=== PATIENT | female | born 1985 | race American Indian/Alaskan Native ===

== ENCOUNTER 2021-04-18 08:38 | Inpatient (IN) | payer MEDICAID ==
--- NOTE | 2021-04-18 08:46 | History and Physical Report ---
History of Present Illness Date of examination: 04/18/21 Date of admission: 04/18/21 08:38 Chief complaint: I'm here for an induction. History of present illness: Pt is a 36 y.o. who presents for IOL @ 37.5 wks per [facility] recommendation d/t IUGR. Last EFW @ [facility] on 03/30 was 4-6, 4%. She was also being followed d/t a low lying placenta (no evidence of vasa previa or placenta previa noted, anterior placenta on 03/30 scan) that has since resolved. EDC Confirmation: 05/04/2021 Gestational Age: 37.5 weeks on admission Past History : 4 Term Births: 1 Premature Births: 0 Living Children: 1 Para: 1 Mult. Births: 0 Prev : 0 Prev. attempt? 0 Aborta: 2 Elect. Ab: 1 Spont. Ab: 1 Ectopics: 0 # 1 Delivery date: 2009 Weeks Gestation: 37 labor: no Delivery type: Hours of labor: 6 Anesthesia type: epidural Delivery location: [place] Sex: Male weight: 5lbs 5oz Comments: no complications # 2 Delivery date: 2010 Weeks Gestation: pt unsure Delivery type: EAB Comments: D&C, no complications # 3 Delivery date: 05/30/2020 Weeks Gestation: 7 Delivery type: SAB Comments: No D&C; Methotrexate; denies complications Past Medical History: Negative Past Medical History Past Surgical History: Reviewed history from 05/30/2020 and no changes required: negative Family History Summary: Reviewed history and no changes required: 09/24/2020 Social History: Reviewed history and no changes required: Smoking History: Patient is a former smoker. Risk Factors: Smoked Tobacco Use: Former smoker Cigars: Yes Cigars/Pipes Year Quit: 2019 Cigars/Pipes Years Since Last Quit: 2 Smokeless Tobacco Use: Never Counseled to Quit/Cut Down: yes Passive Smoke Exposure: no HIV High Risk Behavior: no Exercise: no Exercise Counseling: yes Seatbelt Use: preg-group home counselor % No Dietary Counseling Reason: pn yes Past Medical History Anesthesia Complications: negative Anemia: negative Autoimmune Disorder: negative Bleeding Disorder: negative Blood Transfusions: negative Breast Disease: negative Diabetes: negative Heart Disease: negative Hypertension: negative Hepatitis/Liver Disease: negative Kidney Disease/UTI: negative Neurologic/Epilepsy/Migraines: negative Phlebitis/Varicosities: negative Psychiatric: negative Pulmonary Disease/Asthma: negative Thyroid Disease: negative Hospitalizations: negative 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 Infection History Hx of STD: none HIV Risk Eval: no Hepatitis B Risk Eval: low risk Personal hx. of genital herpes: no Partner hx. of genital herpes: no Rash, Viral, or Febrile illness since last LMP? no Varicella/Chicken Pox Status: Previous Disease TB Risk: no Genetic History Congenital Heart Defect: Mom: no Dad: no Samantha Disease: Mom: no Dad: no Thalassemia Mom: no Dad: no Neural Tube Defect Mom: no Dad: no Down's Syndrome Mom: no Dad: no Jonathan-Sachs Mom: no Dad: no Sickle Cell Disease/Trait Mom: no Dad: no Hemophilia Mom: no Dad: no Muscular Dystrophy Mom: no Dad: no Cystic Fibrosis Mom: no Dad: no Tarrant Chorea Mom: no Dad: no Mental Retardation Mom: no Dad: no Fragile X Mom: no Dad: no Other Genetic/Chromosomal Disorder Mom: no Dad: no Child w/other defect Mom: no Dad: no Enviromental Exposures Enviromental Exposures Reviewed Xray Exposure: no Medication, drug, or alcohol use since LMP: no Chemical/Other Exposure: no Exposure to Cat Liter: no Hx of Parvovirus (Fifth Disease): no Occupational Exposure to Children: none Active Medications (reviewed today): ONDANSETRON 8 MG ORAL TABLET DISINTEGRATING (ONDANSETRON) 1 po q12hrs prn ONDANSETRON HCL TABLET (ONDANSETRON HCL TABS) Current Allergies (reviewed today): No known allergies Past History Past Medical History: no pertinent history Past Surgical History: no surgical history Family/Genetic History: none Social history: no significant social history - Obstetrical History Expected Date of Delivery: 05/04/21 Actual Gestation: 37 Week(s) 5 Day(s) : 4 Para: 1 Hx # Term Pregnancies: 1 Number of Pregnancies: 0 Spontaneous Abortions: 1 Induced : 1 Number of Living Children: 1 Medications and Allergies Allergies Allergy/AdvReac Type Severity Reaction Status Date / Time No Known Allergies Allergy Verified 04/18/21 10:23 Home Medications Medication Instructions Recorded Confirmed Last Taken Type Vitamin 1 tab PO DAILY 04/18/21 04/18/21 04/18/21 08:00 History Review of Systems All systems: negative - Physical Exam Breasts: Positive: deferred Cardiovascular: Regular rate Lungs: Positive: Normal air movement Abdomen: Positive: normal appearance, soft Genitourinary (Female): Positive: normal external genitalia, normal perenium Vulva: both: normal Uterus: Positive: normal size Extremities: Positive: normal - Obstetrical Uterine Contraction Monitor Mode: External Cervical Dilatation: 1.5 Cervical Effacement Percentage: 60 station: -3 Results Result Diagrams: 04/18/21 08:52 All other labs normal. GBS NEGATIVE HBsAg Screen Negative Negative *1 RPR Non Reactive Non Reactive *2 Rubella Antibodies, IgG [L] <0.90 index Immune >0.99 *3 Non-immune <0.90 Equivocal 0.90 - 0.99 Immune >0.99 ABO Grouping O *4 Rh Factor Positive *5 Please note: Prior records for this patient's ABO / Rh type are not available for additional verification. Antibody Screen Negative Negative *6 Tests: (2) HB Solu + Rflx Frac (140309) Hemoglobin (Hgb) Solubility Negative Negative *31 Tests: (3) HIV Ag/Ab with Reflex (148913) HIV Screen 4th Generation wRfx Non Reactive Non Reactive *32 Tests: (4) HCV Antibody reflex to IRENE (022100) ! HCV Ab <0.1 s/co ratio 0.0-0.9 *33 Tests: (5) Interpretation: (873740) ! Interpretation: SPRCS *34 Negative Not infected with HCV, unless recent infection is suspected or other evidence exists to indicate HCV infection. Assessment and Plan A: 36 y.o. @ 37.5 wks, IOL d/t IUGR. - Patient Problems (1) 37 or more weeks gestation of Current Visit: Yes Status: Acute Plan to address problem: Monitor status through EFM. (2) IUGR (intrauterine growth restriction) affecting care of mother Current Visit: Yes Status: Acute Qualifiers: Fetus number: single or unspecified fetus Trimester: third trimester Qualified Code(s): O36.5930 - Maternal care for other known or suspected poor growth, third trimester, not applicable or unspecified Plan to address problem: Admit to labor and delivery for IOL. Initiate IV. Draw admission labs. Pain management: IV medication and epidural. Initiate IOL with Pitocin per protocol. (3) Rubella non-immune status, antepartum Current Visit: Yes Status: Acute Plan to address problem: Vaccine .
[2021-04-18] MEDS ORDERED: OXYTOCIN 10 UNIT/1 ML INJ IM PRN (08:52)
[2021-04-18] MEDS ORDERED: LIDOCAINE (2%) 20 MG/1 ML VIAL 20 ML MDV INFILTRATI NR (08:52)
[2021-04-18] MEDS ORDERED: OXYTOCIN DRIP 30 UNITS/500 ML BAG IV SCH (09:00)
[2021-04-18 09:49] LABS: Hematocrit 34.2 % (30.3-42.9); Hemoglobin 11.2 gm/dl (10.1-14.3); Mean Corpuscular HGB Conc 33 % (30-34); Mean Corpuscular Volume 91 fl (79-97); Platelet Count 205 K/mm3 (140-440); Red Blood Count 3.78 M/mm3 (3.65-5.03)
--- NOTE | 2021-04-18 10:27 | Anesthesia Consultation ---
Anesthesia Consult and Med Hx Date of service: 04/18/21 - Airway Anesthetic Teeth Evaluation: Good ROM Head & Neck: Adequate Mental/Hyoid Distance: Adequate Mallampati Class: Class III Intubation Access Assessment: Possibly Difficult - Pulmonary Exam CTA: Yes - Cardiac Exam Cardiac Exam: RRR - Pre-Operative Health Status ASA Pre-Surgery Classification: ASA2 Proposed Anesthetic Plan: Epidural - Pulmonary Hx Smoking: No Hx Asthma: No Hx Sleep Apnea: No - Cardiovascular System Hx Hypertension: No Hx Heart Attack/AMI: No Hx Angina: No - Central Nervous System Hx Seizures: No Hx Psychiatric Problems: No - Gastrointestinal Hx Gastroesophageal Reflux Disease: No - Endocrine Hx Renal Disease: No Hx Liver Disease: No Hx Insulin Dependent Diabetes: No Hx Non-Insulin Dependent Diabetes: No Hx Hypothyroidism: No Hx Hyperthyroidism: No - Hematic Hx Anemia: No Hx Sickle Cell Disease: No - Other Systems Hx Alcohol Use: No (social when not )
[2021-04-18] MEDS ORDERED: ACETAMINOPHEN 325 MG TAB PO PRN (11:00)
[2021-04-18] MEDS ORDERED: fentaNYL 100 MCG/2 ML INJ IV PRN (11:00)
[2021-04-18] MEDS ORDERED: ePHEDrine SULFATE 50 MG/1 ML INJ IV PRN (11:00)
[2021-04-18] MEDS ORDERED: miSOPROStol 200 MCG TAB PR PRN (11:00)
[2021-04-18] MEDS ORDERED: CARBOPROST TROMETHAMINE 250 MCG/1 ML INJ IM PRN (11:00)
[2021-04-18] MEDS ORDERED: NALOXONE 0.4 MG/1 ML INJ IV PRN (11:00)
[2021-04-18] MEDS ORDERED: TERBUTALINE 1 MG/1 ML INJ SUB-Q PRN (11:00)
[2021-04-18] MEDS ORDERED: METHYLERGONOVINE MALEATE 0.2 MG/ML VIAL IM PRN (11:00)
[2021-04-18] MEDS ORDERED: PROMETHAZINE 25 MG TAB PO PRN (11:00)
[2021-04-18] MEDS ORDERED: LOPERAMIDE 2 MG CAP PO PRN (11:00)
[2021-04-18] MEDS: LACTATED RINGERS 1,000 ML IV SCH ×3 (12:13→21:20)
--- NOTE | 2021-04-18 13:18 | Ultrasound Report ---
US OB limited INDICATION / CLINICAL INFORMATION: presentation COMPARISON: None available. FINDINGS/IMPRESSION: Single live intrauterine in cephalic presentation with heart rate measuring 123 bpm. Signer Name: Jay Orellana MD Signed: 04/18/2021 1:14 PM Workstation Name: [id number]
[2021-04-18] MEDS: OXYTOCIN DRIP 30 UNITS/500 ML BAG IV SCH (13:55)
--- NOTE | 2021-04-18 17:43 | Progress Note ---
Assessment and Plan A: 36 y.o. @ 37.5 wks, IOL d/t IUGR. Unchanged cervical exam. - Patient Problems (1) 37 or more weeks gestation of Current Visit: Yes Status: Acute (2) IUGR (intrauterine growth restriction) affecting care of mother Current Visit: Yes Status: Acute Qualifiers: Fetus number: single or unspecified fetus Trimester: third trimester Qualified Code(s): O36.5930 - Maternal care for other known or suspected poor growth, third trimester, not applicable or unspecified Plan to address problem: Unchanged cervical exam. Will allow for dinner. Insert Cervidil after dinner. (3) Rubella non-immune status, antepartum Current Visit: Yes Status: Acute Subjective - Subjective Date of service: 04/18/21 Principal diagnosis: IUP @ 37.5 wks, IOL d/t IUGR Patient reports: movement normal, contractions, no new complaints, no loss of fluid, no vaginal bleeding Objective - Vital Signs Vital Signs: Vital Signs - 12hr 04/18/21 04/18/21 04/18/21 09:13 10:30 10:38 Temperature 98.5 F Pulse Rate 78 85 Respiratory 18 Rate Blood Pressure 114/76 140/83 O2 Sat by Pulse Oximetry O2 Sat by Pulse 98 Oximetry [ Bilateral] 04/18/21 04/18/21 04/18/21 11:18 11:37 12:11 Temperature Pulse Rate 59 L 81 67 Respiratory Rate Blood Pressure 129/80 125/86 O2 Sat by Pulse 98 Oximetry O2 Sat by Pulse Oximetry [ Bilateral] 04/18/21 04/18/21 04/18/21 13:51 14:07 14:37 Temperature Pulse Rate 73 63 55 L Respiratory Rate Blood Pressure 120/66 114/69 130/76 O2 Sat by Pulse Oximetry O2 Sat by Pulse Oximetry [ Bilateral] 04/18/21 04/18/21 04/18/21 15:07 15:39 16:09 Temperature Pulse Rate 57 L 55 L 61 Respiratory Rate Blood Pressure 130/69 144/84 127/80 O2 Sat by Pulse Oximetry O2 Sat by Pulse Oximetry [ Bilateral] 04/18/21 04/18/21 04/18/21 16:37 17:07 17:38 Temperature Pulse Rate 63 61 56 L Respiratory Rate Blood Pressure 146/89 136/84 126/81 O2 Sat by Pulse Oximetry O2 Sat by Pulse Oximetry [ Bilateral] - Exam Cardiovascular: Regular rate Lungs: Normal air movement Abdomen: Present: normal appearance, soft FHR: category 1 Uterine Contraction Monitor Mode: External Cervical Dilatation: 1.5 Cervical Effacement Percentage: 60 station: -3 Uterine Contraction Pattern: Regular Uterine Tone Measurement Phase: Resting Uterine Contraction Intensity: Mild Extremities: normal - Labs Labs: Laboratory Results - last 24 hr 04/18/21 04/18/21 04/18/21 08:52 09:35 09:35 WBC 9.0 RBC 3.78 Hgb 11.2 Hct 34.2 MCV 91 MCH 30 MCHC 33 RDW 15.0 Plt Count 205 SARS-CoV-2 (PCR) Negative Blood Type O POSITIVE Antibody Screen Negative
[2021-04-18] MEDS ORDERED: DINOPROSTONE 10 MG VAG SUPP VG SCH (18:00)
[2021-04-18] MEDS ORDERED: MINERAL OIL 30 ML ORAL LIQD PO PRN (22:00)
[2021-04-19] MEDS: ONDANSETRON 4 MG/2 ML INJ IV PRN (01:02)
--- NOTE | 2021-04-19 06:07 | Progress Note ---
Assessment and Plan Pt resting without complaints. Cervidil to be removed @0858, pt may have am care and breakfast; Pitocin to start per protocol. VSSAF, admission labs reviewed and WNL; Anticipate . - Patient Problems (1) Rubella non-immune status, antepartum Current Visit: Yes Status: Acute Plan to address problem: vaccination to be offered (2) IUGR (intrauterine growth restriction) affecting care of mother Current Visit: Yes Status: Acute Qualifiers: Fetus number: single or unspecified fetus Trimester: third trimester Qualified Code(s): O36.5930 - Maternal care for other known or suspected poor growth, third trimester, not applicable or unspecified (3) 37 or more weeks gestation of Current Visit: Yes Status: Acute Subjective - Subjective Date of service: 04/19/21 Principal diagnosis: IUP @ 37.6 wks, IOL d/t IUGR Patient reports: movement normal, contractions, no new complaints, no loss of fluid, no vaginal bleeding Objective - Vital Signs Vital Signs: Vital Signs - 12hr 04/18/21 04/18/21 04/18/21 18:08 18:58 19:07 Pulse Rate 60 58 L 57 L Blood Pressure 126/74 127/87 127/85 O2 Sat by Pulse Oximetry 04/18/21 04/18/21 04/18/21 19:38 20:09 21:11 Pulse Rate 86 71 77 Blood Pressure 139/95 122/84 109/75 O2 Sat by Pulse 99 Oximetry 04/18/21 04/18/21 04/18/21 21:16 21:21 21:26 Pulse Rate 91 H 87 81 Blood Pressure O2 Sat by Pulse 100 99 99 Oximetry 04/18/21 04/18/21 04/18/21 21:31 21:36 21:38 Pulse Rate 101 H 88 85 Blood Pressure 122/73 O2 Sat by Pulse 99 98 Oximetry 04/18/21 04/18/21 04/18/21 21:41 21:46 21:51 Pulse Rate 79 105 H 111 H Blood Pressure O2 Sat by Pulse 99 99 99 Oximetry 04/18/21 04/18/21 04/18/21 21:56 22:01 22:06 Pulse Rate 96 H 66 77 Blood Pressure O2 Sat by Pulse 99 99 99 Oximetry 04/18/21 04/18/21 04/18/21 22:07 22:11 22:16 Pulse Rate 76 73 70 Blood Pressure 109/69 O2 Sat by Pulse 99 99 Oximetry 04/18/21 04/18/21 04/18/21 22:21 22:26 22:31 Pulse Rate 87 87 68 Blood Pressure O2 Sat by Pulse 99 99 100 Oximetry 04/18/21 04/18/21 04/18/21 22:36 22:37 22:41 Pulse Rate 92 H 78 79 Blood Pressure 121/72 O2 Sat by Pulse 99 99 Oximetry 04/18/21 04/18/21 04/18/21 22:46 22:51 22:56 Pulse Rate 104 H 84 73 Blood Pressure O2 Sat by Pulse 99 99 100 Oximetry 04/18/21 04/18/21 04/18/21 23:01 23:06 23:07 Pulse Rate 93 H 100 H 84 Blood Pressure 112/76 O2 Sat by Pulse 99 100 Oximetry 04/18/21 04/18/21 04/18/21 23:11 23:16 23:21 Pulse Rate 82 75 66 Blood Pressure O2 Sat by Pulse 99 100 100 Oximetry 04/18/21 04/18/21 04/18/21 23:26 23:31 23:36 Pulse Rate 63 67 71 Blood Pressure O2 Sat by Pulse 100 100 100 Oximetry 04/18/21 04/18/21 04/18/21 23:37 23:41 23:46 Pulse Rate 63 66 65 Blood Pressure 120/66 O2 Sat by Pulse 100 100 Oximetry 04/18/21 04/18/21 04/19/21 23:51 23:56 00:01 Pulse Rate 72 74 71 Blood Pressure O2 Sat by Pulse 100 100 100 Oximetry 04/19/21 04/19/21 04/19/21 00:06 00:07 00:11 Pulse Rate 73 70 68 Blood Pressure 120/73 O2 Sat by Pulse 100 100 Oximetry 04/19/21 04/19/21 04/19/21 00:16 00:21 00:26 Pulse Rate 77 71 67 Blood Pressure O2 Sat by Pulse 100 100 100 Oximetry 04/19/21 04/19/21 04/19/21 00:31 00:36 00:37 Pulse Rate 69 75 70 Blood Pressure 125/72 O2 Sat by Pulse 100 100 Oximetry 04/19/21 04/19/21 04/19/21 00:41 00:45 00:54 Pulse Rate 66 93 H 75 Blood Pressure O2 Sat by Pulse 99 91 99 Oximetry 04/19/21 04/19/21 04/19/21 00:59 01:04 01:08 Pulse Rate 81 64 60 Blood Pressure 107/65 O2 Sat by Pulse 98 98 Oximetry 04/19/21 04/19/21 04/19/21 01:09 01:14 01:19 Pulse Rate 66 62 64 Blood Pressure O2 Sat by Pulse 98 98 99 Oximetry 04/19/21 04/19/21 04/19/21 01:24 01:29 01:34 Pulse Rate 75 66 74 Blood Pressure O2 Sat by Pulse 98 98 98 Oximetry 04/19/21 04/19/21 04/19/21 01:37 01:39 01:44 Pulse Rate 79 75 76 Blood Pressure 102/65 O2 Sat by Pulse 98 98 Oximetry 04/19/21 04/19/21 04/19/21 01:49 01:54 01:59 Pulse Rate 69 74 80 Blood Pressure O2 Sat by Pulse 98 98 98 Oximetry 04/19/21 04/19/21 04/19/21 02:04 02:08 02:09 Pulse Rate 63 59 L 60 Blood Pressure 128/78 O2 Sat by Pulse 98 96 Oximetry 04/19/21 04/19/21 04/19/21 02:12 02:14 02:19 Pulse Rate 62 62 71 Blood Pressure O2 Sat by Pulse 91 94 99 Oximetry 04/19/21 04/19/21 04/19/21 02:24 02:29 02:34 Pulse Rate 65 61 58 L Blood Pressure O2 Sat by Pulse 99 99 97 Oximetry 04/19/21 04/19/21 04/19/21 02:37 02:39 02:43 Pulse Rate 77 57 L 66 Blood Pressure 130/89 O2 Sat by Pulse 98 91 Oximetry 04/19/21 04/19/21 04/19/21 02:44 02:49 02:54 Pulse Rate 61 70 65 Blood Pressure O2 Sat by Pulse 98 97 99 Oximetry 04/19/21 04/19/21 04/19/21 02:59 03:04 03:07 Pulse Rate 64 56 L 55 L Blood Pressure 134/74 O2 Sat by Pulse 98 96 Oximetry 04/19/21 04/19/21 04/19/21 03:08 03:09 03:14 Pulse Rate 58 L 80 64 Blood Pressure O2 Sat by Pulse 90 99 98 Oximetry 04/19/21 04/19/21 04/19/21 03:17 03:23 03:24 Pulse Rate 42 L 95 H Blood Pressure O2 Sat by Pulse 84 85 84 Oximetry 04/19/21 04/19/21 04/19/21 03:40 03:42 03:44 Pulse Rate 66 62 Blood Pressure 139/85 O2 Sat by Pulse 89 100 Oximetry 04/19/21 04/19/21 04/19/21 03:47 03:52 03:57 Pulse Rate 75 58 L 59 L Blood Pressure O2 Sat by Pulse 99 99 100 Oximetry 04/19/21 04/19/21 04/19/21 04:02 04:07 04:12 Pulse Rate 74 68 66 Blood Pressure 121/73 O2 Sat by Pulse 100 100 98 Oximetry 04/19/21 04/19/21 04/19/21 04:17 04:22 04:27 Pulse Rate 63 55 L 66 Blood Pressure O2 Sat by Pulse 98 99 97 Oximetry 04/19/21 04/19/21 04/19/21 04:32 04:37 04:42 Pulse Rate 60 67 58 L Blood Pressure 137/86 O2 Sat by Pulse 98 100 99 Oximetry 04/19/21 04/19/21 04/19/21 04:47 04:52 04:57 Pulse Rate 62 64 57 L Blood Pressure O2 Sat by Pulse 100 99 98 Oximetry 04/19/21 04/19/21 04/19/21 05:02 05:07 05:12 Pulse Rate 68 63 63 Blood Pressure 115/76 O2 Sat by Pulse 98 99 100 Oximetry 04/19/21 04/19/21 04/19/21 05:15 05:37 05:42 Pulse Rate 78 58 L 63 Blood Pressure 123/79 135/84 O2 Sat by Pulse 77 L Oximetry - Exam Breasts: deferred Cardiovascular: Regular rate Lungs: Normal air movement Abdomen: Present: normal appearance, soft Uterus: Present: normal, other (gravid at term) FHR: auscultation normal, category 1 Uterine Contraction Monitor Mode: External Uterine Contraction Pattern: Irregular Uterine Tone Measurement Phase: Resting Extremities: normal - Labs Labs: Laboratory Results - last 24 hr 04/18/21 04/18/21 04/18/21 08:52 09:35 09:35 WBC 9.0 RBC 3.78 Hgb 11.2 Hct 34.2 MCV 91 MCH 30 MCHC 33 RDW 15.0 Plt Count 205 Syphilis IgG Antibody Nonreactive SARS-CoV-2 (PCR) Negative Blood Type Antibody Screen 04/18/21 09:35 WBC RBC Hgb Hct MCV MCH MCHC RDW Plt Count Syphilis IgG Antibody SARS-CoV-2 (PCR) Blood Type O POSITIVE Antibody Screen Negative
--- NOTE | 2021-04-19 09:51 | Progress Note ---
Assessment and Plan A: 36 y.o. @ 37.6 wks, IOL d/t IUGR. Cervical exam: 1.5/-3. - Patient Problems (1) 37 or more weeks gestation of Current Visit: Yes Status: Acute Plan to address problem: Continue to monitor through EFM. (2) IUGR (intrauterine growth restriction) affecting care of mother Current Visit: Yes Status: Acute Qualifiers: Fetus number: single or unspecified fetus Trimester: third trimester Qualified Code(s): O36.5930 - Maternal care for other known or suspected poor growth, third trimester, not applicable or unspecified Plan to address problem: Continue to monitor status through EFM. Continue with IOL with Pitocin per protocol. (3) Rubella non-immune status, antepartum Current Visit: Yes Status: Acute Plan to address problem: Vaccine . Subjective - Subjective Date of service: 04/19/21 Principal diagnosis: IUP @ 37.6 wks, IOL d/t IUGR Patient reports: movement normal, contractions, no new complaints, no loss of fluid, no vaginal bleeding Objective - Vital Signs Vital Signs: Vital Signs - 12hr 04/18/21 04/18/21 04/18/21 21:51 21:56 22:01 Temperature Pulse Rate 111 H 96 H 66 Respiratory Rate Blood Pressure Blood Pressure [Left] O2 Sat by Pulse 99 99 99 Oximetry O2 Sat by Pulse Oximetry [ Bilateral] 04/18/21 04/18/21 04/18/21 22:06 22:07 22:11 Temperature Pulse Rate 77 76 73 Respiratory Rate Blood Pressure 109/69 Blood Pressure [Left] O2 Sat by Pulse 99 99 Oximetry O2 Sat by Pulse Oximetry [ Bilateral] 04/18/21 04/18/21 04/18/21 22:16 22:21 22:26 Temperature Pulse Rate 70 87 87 Respiratory Rate Blood Pressure Blood Pressure [Left] O2 Sat by Pulse 99 99 99 Oximetry O2 Sat by Pulse Oximetry [ Bilateral] 04/18/21 04/18/21 04/18/21 22:31 22:36 22:37 Temperature Pulse Rate 68 92 H 78 Respiratory Rate Blood Pressure 121/72 Blood Pressure [Left] O2 Sat by Pulse 100 99 Oximetry O2 Sat by Pulse Oximetry [ Bilateral] 04/18/21 04/18/21 04/18/21 22:41 22:46 22:51 Temperature Pulse Rate 79 104 H 84 Respiratory Rate Blood Pressure Blood Pressure [Left] O2 Sat by Pulse 99 99 99 Oximetry O2 Sat by Pulse Oximetry [ Bilateral] 04/18/21 04/18/21 04/18/21 22:56 23:01 23:06 Temperature Pulse Rate 73 93 H 100 H Respiratory Rate Blood Pressure Blood Pressure [Left] O2 Sat by Pulse 100 99 100 Oximetry O2 Sat by Pulse Oximetry [ Bilateral] 04/18/21 04/18/21 04/18/21 23:07 23:11 23:16 Temperature Pulse Rate 84 82 75 Respiratory Rate Blood Pressure 112/76 Blood Pressure [Left] O2 Sat by Pulse 99 100 Oximetry O2 Sat by Pulse Oximetry [ Bilateral] 04/18/21 04/18/21 04/18/21 23:21 23:26 23:31 Temperature Pulse Rate 66 63 67 Respiratory Rate Blood Pressure Blood Pressure [Left] O2 Sat by Pulse 100 100 100 Oximetry O2 Sat by Pulse Oximetry [ Bilateral] 04/18/21 04/18/21 04/18/21 23:36 23:37 23:41 Temperature Pulse Rate 71 63 66 Respiratory Rate Blood Pressure 120/66 Blood Pressure [Left] O2 Sat by Pulse 100 100 Oximetry O2 Sat by Pulse Oximetry [ Bilateral] 04/18/21 04/18/21 04/18/21 23:46 23:51 23:56 Temperature Pulse Rate 65 72 74 Respiratory Rate Blood Pressure Blood Pressure [Left] O2 Sat by Pulse 100 100 100 Oximetry O2 Sat by Pulse Oximetry [ Bilateral] 04/19/21 04/19/21 04/19/21 00:01 00:06 00:07 Temperature Pulse Rate 71 73 70 Respiratory Rate Blood Pressure 120/73 Blood Pressure [Left] O2 Sat by Pulse 100 100 Oximetry O2 Sat by Pulse Oximetry [ Bilateral] 04/19/21 04/19/21 04/19/21 00:11 00:16 00:21 Temperature Pulse Rate 68 77 71 Respiratory Rate Blood Pressure Blood Pressure [Left] O2 Sat by Pulse 100 100 100 Oximetry O2 Sat by Pulse Oximetry [ Bilateral] 04/19/21 04/19/21 04/19/21 00:26 00:31 00:36 Temperature Pulse Rate 67 69 75 Respiratory Rate Blood Pressure Blood Pressure [Left] O2 Sat by Pulse 100 100 100 Oximetry O2 Sat by Pulse Oximetry [ Bilateral] 04/19/21 04/19/21 04/19/21 00:37 00:41 00:45 Temperature Pulse Rate 70 66 93 H Respiratory Rate Blood Pressure 125/72 Blood Pressure [Left] O2 Sat by Pulse 99 91 Oximetry O2 Sat by Pulse Oximetry [ Bilateral] 04/19/21 04/19/21 04/19/21 00:54 00:59 01:04 Temperature Pulse Rate 75 81 64 Respiratory Rate Blood Pressure Blood Pressure [Left] O2 Sat by Pulse 99 98 98 Oximetry O2 Sat by Pulse Oximetry [ Bilateral] 04/19/21 04/19/21 04/19/21 01:08 01:09 01:14 Temperature Pulse Rate 60 66 62 Respiratory Rate Blood Pressure 107/65 Blood Pressure [Left] O2 Sat by Pulse 98 98 Oximetry O2 Sat by Pulse Oximetry [ Bilateral] 04/19/21 04/19/21 04/19/21 01:19 01:24 01:29 Temperature Pulse Rate 64 75 66 Respiratory Rate Blood Pressure Blood Pressure [Left] O2 Sat by Pulse 99 98 98 Oximetry O2 Sat by Pulse Oximetry [ Bilateral] 04/19/21 04/19/21 04/19/21 01:34 01:37 01:39 Temperature Pulse Rate 74 79 75 Respiratory Rate Blood Pressure 102/65 Blood Pressure [Left] O2 Sat by Pulse 98 98 Oximetry O2 Sat by Pulse Oximetry [ Bilateral] 04/19/21 04/19/21 04/19/21 01:44 01:49 01:54 Temperature Pulse Rate 76 69 74 Respiratory Rate Blood Pressure Blood Pressure [Left] O2 Sat by Pulse 98 98 98 Oximetry O2 Sat by Pulse Oximetry [ Bilateral] 04/19/21 04/19/21 04/19/21 01:59 02:04 02:08 Temperature Pulse Rate 80 63 59 L Respiratory Rate Blood Pressure 128/78 Blood Pressure [Left] O2 Sat by Pulse 98 98 Oximetry O2 Sat by Pulse Oximetry [ Bilateral] 04/19/21 04/19/21 04/19/21 02:09 02:12 02:14 Temperature Pulse Rate 60 62 62 Respiratory Rate Blood Pressure Blood Pressure [Left] O2 Sat by Pulse 96 91 94 Oximetry O2 Sat by Pulse Oximetry [ Bilateral] 04/19/21 04/19/21 04/19/21 02:19 02:24 02:29 Temperature Pulse Rate 71 65 61 Respiratory Rate Blood Pressure Blood Pressure [Left] O2 Sat by Pulse 99 99 99 Oximetry O2 Sat by Pulse Oximetry [ Bilateral] 04/19/21 04/19/21 04/19/21 02:34 02:37 02:39 Temperature Pulse Rate 58 L 77 57 L Respiratory Rate Blood Pressure 130/89 Blood Pressure [Left] O2 Sat by Pulse 97 98 Oximetry O2 Sat by Pulse Oximetry [ Bilateral] 04/19/21 04/19/21 04/19/21 02:43 02:44 02:49 Temperature Pulse Rate 66 61 70 Respiratory Rate Blood Pressure Blood Pressure [Left] O2 Sat by Pulse 91 98 97 Oximetry O2 Sat by Pulse Oximetry [ Bilateral] 04/19/21 04/19/21 04/19/21 02:54 02:59 03:04 Temperature Pulse Rate 65 64 56 L Respiratory Rate Blood Pressure Blood Pressure [Left] O2 Sat by Pulse 99 98 96 Oximetry O2 Sat by Pulse Oximetry [ Bilateral] 04/19/21 04/19/21 04/19/21 03:07 03:08 03:09 Temperature Pulse Rate 55 L 58 L 80 Respiratory Rate Blood Pressure 134/74 Blood Pressure [Left] O2 Sat by Pulse 90 99 Oximetry O2 Sat by Pulse Oximetry [ Bilateral] 04/19/21 04/19/21 04/19/21 03:14 03:17 03:23 Temperature Pulse Rate 64 42 L Respiratory Rate Blood Pressure Blood Pressure [Left] O2 Sat by Pulse 98 84 85 Oximetry O2 Sat by Pulse Oximetry [ Bilateral] 04/19/21 04/19/21 04/19/21 03:24 03:40 03:42 Temperature Pulse Rate 95 H 66 Respiratory Rate Blood Pressure Blood Pressure [Left] O2 Sat by Pulse 84 89 100 Oximetry O2 Sat by Pulse Oximetry [ Bilateral] 04/19/21 04/19/21 04/19/21 03:44 03:47 03:52 Temperature Pulse Rate 62 75 58 L Respiratory Rate Blood Pressure 139/85 Blood Pressure [Left] O2 Sat by Pulse 99 99 Oximetry O2 Sat by Pulse Oximetry [ Bilateral] 04/19/21 04/19/21 04/19/21 03:57 04:02 04:07 Temperature Pulse Rate 59 L 74 68 Respiratory Rate Blood Pressure 121/73 Blood Pressure [Left] O2 Sat by Pulse 100 100 100 Oximetry O2 Sat by Pulse Oximetry [ Bilateral] 04/19/21 04/19/2104/19/22 04:12 04:17 04:22 Temperature Pulse Rate 66 63 55 L Respiratory Rate Blood Pressure Blood Pressure [Left] O2 Sat by Pulse 98 98 99 Oximetry O2 Sat by Pulse Oximetry [ Bilateral] 04/19/21 04/19/21 04/19/21 04:27 04:32 04:37 Temperature Pulse Rate 66 60 67 Respiratory Rate Blood Pressure 137/86 Blood Pressure [Left] O2 Sat by Pulse 97 98 100 Oximetry O2 Sat by Pulse Oximetry [ Bilateral] 04/19/21 04/19/21 04/19/21 04:42 04:47 04:52 Temperature Pulse Rate 58 L 62 64 Respiratory Rate Blood Pressure Blood Pressure [Left] O2 Sat by Pulse 99 100 99 Oximetry O2 Sat by Pulse Oximetry [ Bilateral] 04/19/21 04/19/21 04/19/21 04:57 05:02 05:07 Temperature Pulse Rate 57 L 68 63 Respiratory Rate Blood Pressure 115/76 Blood Pressure [Left] O2 Sat by Pulse 98 98 99 Oximetry O2 Sat by Pulse Oximetry [ Bilateral] 04/19/21 04/19/21 04/19/21 05:12 05:15 05:37 Temperature Pulse Rate 63 78 58 L Respiratory Rate Blood Pressure 123/79 Blood Pressure [Left] O2 Sat by Pulse 100 77 L Oximetry O2 Sat by Pulse Oximetry [ Bilateral] 04/19/21 04/19/21 04/19/21 05:42 06:12 06:42 Temperature Pulse Rate 63 69 78 Respiratory Rate Blood Pressure 135/84 113/81 117/82 Blood Pressure [Left] O2 Sat by Pulse Oximetry O2 Sat by Pulse Oximetry [ Bilateral] 04/19/21 04/19/21 04/19/21 07:06 07:07 07:09 Temperature 97.7 F Pulse Rate 79 74 Respiratory 15 Rate Blood Pressure Blood Pressure 118/84 [Left] O2 Sat by Pulse 99 Oximetry O2 Sat by Pulse 98 Oximetry [ Bilateral] 04/19/21 04/19/21 04/19/21 07:12 07:14 07:19 Temperature Pulse Rate 65 74 63 Respiratory Rate Blood Pressure 118/84 Blood Pressure [Left] O2 Sat by Pulse 100 99 Oximetry O2 Sat by Pulse Oximetry [ Bilateral] 04/19/21 04/19/21 04/19/21 07:24 07:29 07:34 Temperature Pulse Rate 85 62 59 L Respiratory Rate Blood Pressure Blood Pressure [Left] O2 Sat by Pulse 97 97 96 Oximetry O2 Sat by Pulse Oximetry [ Bilateral] 04/19/21 04/19/21 04/19/21 07:39 07:43 07:44 Temperature Pulse Rate 62 63 65 Respiratory Rate Blood Pressure 141/87 Blood Pressure [Left] O2 Sat by Pulse 100 90 98 Oximetry O2 Sat by Pulse Oximetry [ Bilateral] 04/19/21 04/19/21 04/19/21 07:49 07:54 07:59 Temperature Pulse Rate 66 64 68 Respiratory Rate Blood Pressure Blood Pressure [Left] O2 Sat by Pulse 98 96 98 Oximetry O2 Sat by Pulse Oximetry [ Bilateral] 04/19/21 04/19/21 04/19/21 08:04 08:09 08:12 Temperature Pulse Rate 63 67 86 Respiratory Rate Blood Pressure 122/86 Blood Pressure [Left] O2 Sat by Pulse 97 96 Oximetry O2 Sat by Pulse Oximetry [ Bilateral] 04/19/21 04/19/21 04/19/21 08:14 08:19 08:24 Temperature Pulse Rate 75 74 81 Respiratory Rate Blood Pressure Blood Pressure [Left] O2 Sat by Pulse 96 96 97 Oximetry O2 Sat by Pulse Oximetry [ Bilateral] 04/19/21 04/19/21 04/19/21 08:29 08:34 08:39 Temperature Pulse Rate 80 74 75 Respiratory Rate Blood Pressure Blood Pressure [Left] O2 Sat by Pulse 96 97 98 Oximetry O2 Sat by Pulse Oximetry [ Bilateral] 04/19/21 04/19/21 04/19/21 08:42 08:44 08:48 Temperature Pulse Rate 71 75 66 Respiratory Rate Blood Pressure 132/83 Blood Pressure [Left] O2 Sat by Pulse 96 77 L Oximetry O2 Sat by Pulse Oximetry [ Bilateral] 04/19/21 04/19/21 04/19/21 09:12 09:35 09:43 Temperature Pulse Rate 59 L 66 Respiratory Rate Blood Pressure 117/73 130/89 Blood Pressure [Left] O2 Sat by Pulse 89 Oximetry O2 Sat by Pulse Oximetry [ Bilateral] - Exam Narrative Exam: Discussed with patient unchanged cervical exam and her cervix is very posterior. Plan of care discussed: Pitocin per protocol. Pt agrees to plan at this time. Cardiovascular: Regular rate Lungs: Normal air movement Abdomen: Present: normal appearance, soft Vulva: both: normal FHR: category 1 Uterine Contraction Monitor Mode: External Cervical Dilatation: 1.5 (Very posterior) Cervical Effacement Percentage: 60 station: -3 Uterine Contraction Pattern: Irregular Uterine Tone Measurement Phase: Resting Uterine Contraction Intensity: Mild Extremities: normal - Labs Labs: Laboratory Results - last 24 hr 04/18/21 04/18/21 04/18/21 08:52 09:35 09:35 WBC 9.0 RBC 3.78 Hgb 11.2 Hct 34.2 MCV 91 MCH 30 MCHC 33 RDW 15.0 Plt Count 205 Syphilis IgG Antibody Nonreactive SARS-CoV-2 (PCR) Negative Blood Type Antibody Screen 04/18/21 09:35 WBC RBC Hgb Hct MCV MCH MCHC RDW Plt Count Syphilis IgG Antibody SARS-CoV-2 (PCR) Blood Type O POSITIVE Antibody Screen Negative
[2021-04-19] MEDS: OXYTOCIN DRIP 30 UNITS/500 ML BAG IV SCH (10:19)
[2021-04-19] MEDS ORDERED: DINOPROSTONE 10 MG VAG SUPP VG ONE (18:38)
--- NOTE | 2021-04-19 19:29 | Event Note ---
Date: 04/19/21 (Cervidil) Pt with unchanged cervical exam. Cervidil placed without difficulty.
[2021-04-20] MEDS: BUTORPHANOL 2 MG/1 ML INJ IV PRN ×2 (01:10→06:00)
[2021-04-20] MEDS: LACTATED RINGERS 1,000 ML IV SCH (07:57)
[2021-04-20] MEDS: ONDANSETRON 4 MG/2 ML INJ IV PRN (08:54)
--- NOTE | 2021-04-20 09:00 | Progress Note ---
Assessment and Plan Pt sitting in bed and reports nausea. 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 POC d/w pt. Cervidil out; Pitocin to start per protocol. Pt may have am care with reactive NST. Pt verbalizes understanding and agrees to POC. VSSAF, admission labs WNL; Anticipate . - Patient Problems (1) Rubella non-immune status, antepartum Current Visit: Yes Status: Acute Plan to address problem: vaccination to be offered (2) IUGR (intrauterine growth restriction) affecting care of mother Current Visit: Yes Status: Acute Qualifiers: Fetus number: single or unspecified fetus Trimester: third trimester Qualified Code(s): O36.5930 - Maternal care for other known or suspected poor growth, third trimester, not applicable or unspecified (3) 37 or more weeks gestation of Current Visit: Yes Status: Acute Subjective - Subjective Date of service: 04/20/21 Principal diagnosis: IUP @ 38 wks, IOL d/t IUGR Patient reports: movement normal, contractions, other (nausea and vomiting), no new complaints, no loss of fluid, no vaginal bleeding Objective - Vital Signs Vital Signs: Vital Signs - 12hr 04/19/21 04/19/21 04/19/21 21:04 21:09 21:14 Temperature Pulse Rate 74 65 69 Respiratory Rate Blood Pressure O2 Sat by Pulse 100 100 100 Oximetry O2 Sat by Pulse Oximetry [ Bilateral] 04/19/21 04/19/21 04/19/21 21:19 21:24 21:28 Temperature Pulse Rate 68 77 81 Respiratory Rate Blood Pressure 114/75 O2 Sat by Pulse 100 100 Oximetry O2 Sat by Pulse Oximetry [ Bilateral] 04/19/21 04/19/21 04/19/21 21:29 21:34 21:39 Temperature Pulse Rate 65 73 64 Respiratory Rate Blood Pressure O2 Sat by Pulse 100 100 100 Oximetry O2 Sat by Pulse Oximetry [ Bilateral] 04/19/21 04/19/21 04/19/21 21:44 21:49 21:54 Temperature Pulse Rate 76 64 115 H Respiratory Rate Blood Pressure O2 Sat by Pulse 100 100 82 L Oximetry O2 Sat by Pulse Oximetry [ Bilateral] 04/19/21 04/19/21 04/19/21 21:59 22:01 22:06 Temperature Pulse Rate 54 L 78 75 Respiratory Rate Blood Pressure O2 Sat by Pulse 94 99 98 Oximetry O2 Sat by Pulse Oximetry [ Bilateral] 04/19/21 04/19/21 04/19/21 22:08 22:09 22:10 Temperature 98.7 F Pulse Rate 65 Respiratory 18 Rate Blood Pressure 114/56 O2 Sat by Pulse 99 Oximetry O2 Sat by Pulse 99 Oximetry [ Bilateral] 04/19/21 04/19/21 04/19/21 22:11 22:16 22:21 Temperature Pulse Rate 65 64 84 Respiratory Rate Blood Pressure O2 Sat by Pulse 99 99 98 Oximetry O2 Sat by Pulse Oximetry [ Bilateral] 04/19/21 04/19/21 04/19/21 22:26 22:31 22:36 Temperature Pulse Rate 66 68 64 Respiratory Rate Blood Pressure O2 Sat by Pulse 99 99 99 Oximetry O2 Sat by Pulse Oximetry [ Bilateral] 04/19/21 04/19/21 04/19/21 22:41 22:46 22:49 Temperature Pulse Rate 60 76 68 Respiratory Rate Blood Pressure 114/72 O2 Sat by Pulse 99 100 Oximetry O2 Sat by Pulse Oximetry [ Bilateral] 04/19/21 04/19/21 04/19/21 22:51 22:56 23:01 Temperature Pulse Rate 85 61 68 Respiratory Rate Blood Pressure O2 Sat by Pulse 100 100 99 Oximetry O2 Sat by Pulse Oximetry [ Bilateral] 04/19/21 04/19/21 04/19/21 23:06 23:11 23:16 Temperature Pulse Rate 61 66 71 Respiratory Rate Blood Pressure O2 Sat by Pulse 99 100 99 Oximetry O2 Sat by Pulse Oximetry [ Bilateral] 04/19/21 04/19/21 04/19/21 23:21 23:26 23:28 Temperature Pulse Rate 73 62 64 Respiratory Rate Blood Pressure 128/76 O2 Sat by Pulse 98 99 Oximetry O2 Sat by Pulse Oximetry [ Bilateral] 04/19/21 04/19/21 04/19/21 23:31 23:36 23:39 Temperature Pulse Rate 87 59 L 127 H Respiratory Rate Blood Pressure O2 Sat by Pulse 99 100 86 Oximetry O2 Sat by Pulse Oximetry [ Bilateral] 04/19/21 04/19/21 04/20/21 23:52 23:57 00:02 Temperature Pulse Rate 59 L 63 59 L Respiratory Rate Blood Pressure O2 Sat by Pulse 99 100 100 Oximetry O2 Sat by Pulse Oximetry [ Bilateral] 0204/20/21 04/20/21 00:07 00:08 00:12 Temperature Pulse Rate 73 61 54 L Respiratory Rate Blood Pressure 133/80 O2 Sat by Pulse 98 100 Oximetry O2 Sat by Pulse Oximetry [ Bilateral] 04/20/21 04/20/21 04/20/21 00:17 00:22 00:27 Temperature Pulse Rate 70 62 68 Respiratory Rate Blood Pressure O2 Sat by Pulse 98 100 100 Oximetry O2 Sat by Pulse Oximetry [ Bilateral] 04/20/21 04/20/21 04/20/21 00:32 00:37 00:42 Temperature Pulse Rate 62 70 64 Respiratory Rate Blood Pressure O2 Sat by Pulse 100 100 99 Oximetry O2 Sat by Pulse Oximetry [ Bilateral] 04/20/21 04/20/21 04/20/21 00:47 00:48 00:52 Temperature Pulse Rate 57 L 54 L 70 Respiratory Rate Blood Pressure 124/74 O2 Sat by Pulse 99 94 96 Oximetry O2 Sat by Pulse Oximetry [ Bilateral] 04/20/21 04/20/21 04/20/21 00:57 01:02 01:03 Temperature Pulse Rate 72 75 84 Respiratory Rate Blood Pressure O2 Sat by Pulse 94 98 94 Oximetry O2 Sat by Pulse Oximetry [ Bilateral] 04/20/21 04/20/21 04/20/21 01:07 01:10 01:12 Temperature Pulse Rate 58 L 68 Respiratory 18 Rate Blood Pressure O2 Sat by Pulse 98 98 Oximetry O2 Sat by Pulse Oximetry [ Bilateral] 04/20/21 04/20/21 04/20/21 01:15 01:17 01:22 Temperature Pulse Rate 76 70 71 Respiratory Rate Blood Pressure O2 Sat by Pulse 94 96 96 Oximetry O2 Sat by Pulse Oximetry [ Bilateral] 04/20/21 04/20/21 04/20/21 01:27 01:28 01:32 Temperature Pulse Rate 70 65 75 Respiratory Rate Blood Pressure 106/62 O2 Sat by Pulse 96 96 Oximetry O2 Sat by Pulse Oximetry [ Bilateral] 04/20/21 04/20/21 04/20/21 01:37 01:42 01:47 Temperature Pulse Rate 70 78 68 Respiratory Rate Blood Pressure O2 Sat by Pulse 97 96 97 Oximetry O2 Sat by Pulse Oximetry [ Bilateral] 04/20/21 04/20/21 04/20/21 01:52 01:57 02:02 Temperature Pulse Rate 78 68 74 Respiratory Rate Blood Pressure O2 Sat by Pulse 97 97 97 Oximetry O2 Sat by Pulse Oximetry [ Bilateral] 04/20/21 04/20/21 04/20/21 02:07 02:08 02:12 Temperature Pulse Rate 70 74 69 Respiratory Rate Blood Pressure 122/67 O2 Sat by Pulse 97 98 Oximetry O2 Sat by Pulse Oximetry [ Bilateral] 04/20/21 04/20/21 04/20/21 02:17 02:22 02:27 Temperature Pulse Rate 65 72 63 Respiratory Rate Blood Pressure O2 Sat by Pulse 98 98 98 Oximetry O2 Sat by Pulse Oximetry [ Bilateral] 04/20/21 04/20/21 04/20/21 02:32 02:37 02:42 Temperature Pulse Rate 74 65 75 Respiratory Rate Blood Pressure O2 Sat by Pulse 98 99 98 Oximetry O2 Sat by Pulse Oximetry [ Bilateral] 04/20/21 04/20/21 04/20/21 02:47 02:48 02:52 Temperature Pulse Rate 83 55 L 65 Respiratory Rate Blood Pressure 115/75 O2 Sat by Pulse 98 98 Oximetry O2 Sat by Pulse Oximetry [ Bilateral] 04/20/21 04/20/21 04/20/21 02:57 03:02 03:07 Temperature Pulse Rate 58 L 68 64 Respiratory Rate Blood Pressure O2 Sat by Pulse 100 98 99 Oximetry O2 Sat by Pulse Oximetry [ Bilateral] 04/20/21 04/20/21 04/20/21 03:12 03:17 03:18 Temperature Pulse Rate 61 75 82 Respiratory Rate Blood Pressure O2 Sat by Pulse 99 98 93 Oximetry O2 Sat by Pulse Oximetry [ Bilateral] 04/20/21 04/20/21 04/20/21 03:23 03:28 03:33 Temperature Pulse Rate 189 H 69 62 Respiratory Rate Blood Pressure 98/67 O2 Sat by Pulse 91 97 98 Oximetry O2 Sat by Pulse Oximetry [ Bilateral] 04/20/21 04/20/21 04/20/21 03:38 03:43 03:48 Temperature Pulse Rate 67 68 63 Respiratory Rate Blood Pressure O2 Sat by Pulse 97 97 97 Oximetry O2 Sat by Pulse Oximetry [ Bilateral] 04/20/21 04/20/21 04/20/21 03:53 03:58 04:02 Temperature 98.1 F Pulse Rate 72 70 Respiratory 18 Rate Blood Pressure O2 Sat by Pulse 97 97 97 Oximetry O2 Sat by Pulse Oximetry [ Bilateral] 04/20/21 04/20/21 04/20/21 04:03 04:08 04:13 Temperature Pulse Rate 64 60 58 L Respiratory Rate Blood Pressure 93/60 O2 Sat by Pulse 99 99 98 Oximetry O2 Sat by Pulse Oximetry [ Bilateral] 04/20/21 04/20/21 04/20/21 04:18 04:23 04:28 Temperature Pulse Rate 59 L 59 L 66 Respiratory Rate Blood Pressure O2 Sat by Pulse 99 99 98 Oximetry O2 Sat by Pulse Oximetry [ Bilateral] 04/20/21 04/20/21 04/20/21 04:33 04:38 04:43 Temperature Pulse Rate 63 63 67 Respiratory Rate Blood Pressure O2 Sat by Pulse 98 100 98 Oximetry O2 Sat by Pulse Oximetry [ Bilateral] 04/20/21 04/20/21 04/20/21 04:48 04:53 04:54 Temperature Pulse Rate 60 68 63 Respiratory Rate Blood Pressure 108/70 O2 Sat by Pulse 99 93 93 Oximetry O2 Sat by Pulse Oximetry [ Bilateral] 04/20/21 04/20/21 04/20/21 04:58 05:03 05:08 Temperature Pulse Rate 75 83 70 Respiratory Rate Blood Pressure O2 Sat by Pulse 99 98 98 Oximetry O2 Sat by Pulse Oximetry [ Bilateral] 04/20/21 04/20/21 04/20/21 05:13 05:18 05:23 Temperature Pulse Rate 82 71 64 Respiratory Rate Blood Pressure O2 Sat by Pulse 98 99 98 Oximetry O2 Sat by Pulse Oximetry [ Bilateral] 04/20/21 04/20/21 04/20/21 05:28 05:33 05:38 Temperature Pulse Rate 65 88 63 Respiratory Rate Blood Pressure 97/64 O2 Sat by Pulse 99 98 98 Oximetry O2 Sat by Pulse Oximetry [ Bilateral] 04/20/21 04/20/21 04/20/21 05:43 05:48 05:53 Temperature Pulse Rate 74 63 56 L Respiratory Rate Blood Pressure O2 Sat by Pulse 99 100 99 Oximetry O2 Sat by Pulse Oximetry [ Bilateral] 04/20/21 04/20/21 04/20/21 05:58 06:02 06:03 Temperature Pulse Rate 66 61 71 Respiratory Rate Blood Pressure 111/65 O2 Sat by Pulse 98 98 Oximetry O2 Sat by Pulse Oximetry [ Bilateral] 04/20/21 04/20/21 04/20/21 06:08 06:13 06:18 Temperature Pulse Rate 62 67 74 Respiratory Rate Blood Pressure 113/56 O2 Sat by Pulse 97 97 97 Oximetry O2 Sat by Pulse Oximetry [ Bilateral] 04/20/21 04/20/21 04/20/21 06:23 06:28 06:33 Temperature Pulse Rate 65 70 77 Respiratory Rate Blood Pressure O2 Sat by Pulse 97 97 98 Oximetry O2 Sat by Pulse Oximetry [ Bilateral] 04/20/21 04/20/21 04/20/21 06:38 06:43 06:48 Temperature Pulse Rate 66 72 63 Respiratory Rate Blood Pressure 114/73 O2 Sat by Pulse 98 99 98 Oximetry O2 Sat by Pulse Oximetry [ Bilateral] 04/20/21 04/20/21 04/20/21 06:53 06:58 07:03 Temperature Pulse Rate 63 69 74 Respiratory Rate Blood Pressure O2 Sat by Pulse 98 99 97 Oximetry O2 Sat by Pulse Oximetry [ Bilateral] 04/20/21 04/20/21 04/20/21 07:08 07:18 07:19 Temperature Pulse Rate 118 H 66 Respiratory Rate Blood Pressure O2 Sat by Pulse 87 86 100 Oximetry O2 Sat by Pulse Oximetry [ Bilateral] 04/20/21 04/20/21 04/20/21 07:23 07:24 07:28 Temperature Pulse Rate 70 62 Respiratory Rate Blood Pressure 125/80 O2 Sat by Pulse 98 Oximetry O2 Sat by Pulse 100 Oximetry [ Bilateral] 04/20/21 04/20/21 04/20/21 07:29 07:34 07:39 Temperature Pulse Rate 61 73 65 Respiratory Rate Blood Pressure O2 Sat by Pulse 100 100 99 Oximetry O2 Sat by Pulse Oximetry [ Bilateral] 04/20/21 04/20/21 04/20/21 07:44 07:49 07:54 Temperature Pulse Rate 64 57 L 62 Respiratory Rate Blood Pressure O2 Sat by Pulse 100 100 100 Oximetry O2 Sat by Pulse Oximetry [ Bilateral] 04/20/21 04/20/21 04/20/21 07:59 08:03 08:10 Temperature Pulse Rate 68 37 L 90 Respiratory Rate Blood Pressure 144/109 O2 Sat by Pulse 99 84 Oximetry O2 Sat by Pulse Oximetry [ Bilateral] 04/20/21 04/20/21 04/20/21 08:31 08:37 08:43 Temperature Pulse Rate 91 H Respiratory Rate Blood Pressure O2 Sat by Pulse 86 83 L 83 L Oximetry O2 Sat by Pulse Oximetry [ Bilateral] 04/20/21 04/20/21 08:55 08:56 Temperature Pulse Rate 57 L Respiratory Rate Blood Pressure O2 Sat by Pulse 85 86 Oximetry O2 Sat by Pulse Oximetry [ Bilateral] - Exam Breasts: deferred Cardiovascular: Regular rate Lungs: Normal air movement Abdomen: Present: normal appearance, soft. Absent: distention, tenderness FHR: auscultation normal, category 1 Uterine Contraction Monitor Mode: External Uterine Contraction Pattern: Irregular Uterine Tone Measurement Phase: Resting Extremities: normal
[2021-04-20] MEDS: OXYTOCIN DRIP 30 UNITS/500 ML BAG IV SCH (10:12)
[2021-04-20] MEDS ORDERED: ePHEDrine SULFATE 50 MG/1 ML INJ IV PRN (17:23)
[2021-04-20] MEDS ORDERED: NALOXONE 2 MG/2 ML INJ IV PRN (17:23)
--- NOTE | 2021-04-20 17:42 | Progress Note ---
Labor Epidural - Labor Epidural Start Time: 17:31 Stop Time: 17:34 Performed by:: EBONI STOVALL Procedure: Patient is requesting epidural for labor pain. H&P, and labs reviewed. Procedure explained, questions answered, consent obtained. Patient in sitting position with blood pressure cuff and pulse ox on and working. Timeout performed immediately before start of procedure. Sterile Duraprep prep/drape. 3 mL 1% lidocaine skin wheal at L[3]-L[4]. 17-gauge tuohy epidural needle advanced to [id number] with saline at [7] cm. 25-gauge spinal needle advanced until clear, free-flowing CSF. Intrathecal dexmedetomidine [5] mcg administered and needle removed. Epidural catheter advanced to [12] cm, negative aspiration for blood and csf, negative test dose 3 ml 1.5% lidocaine with epinephrine. Sterile sponge and tegaderm applied, followed by tape reinforcement. Patient tolerated procedure well.
--- NOTE | 2021-04-20 17:44 | Progress Note ---
Assessment and Plan Pt with urge to push and c/o rectal pressure. SVE performed with BBOW. Pt requests epidural. Anticipate . - Patient Problems (1) Rubella non-immune status, antepartum Current Visit: Yes Status: Acute Plan to address problem: vaccination to be offered (2) IUGR (intrauterine growth restriction) affecting care of mother Current Visit: Yes Status: Acute Qualifiers: Fetus number: single or unspecified fetus Trimester: third trimester Qualified Code(s): O36.5930 - Maternal care for other known or suspected poor growth, third trimester, not applicable or unspecified (3) 37 or more weeks gestation of Current Visit: Yes Status: Acute Subjective - Subjective Date of service: 04/20/21 Principal diagnosis: IUP @ 38 wks, IOL d/t IUGR Patient reports: vaginal bleeding, movement normal, contractions, other (rectal pressure), no new complaints, no loss of fluid Objective - Vital Signs Vital Signs: Vital Signs - 12hr 04/20/21 04/20/21 04/20/21 05:48 05:53 05:58 Temperature Pulse Rate 63 56 L 66 Respiratory Rate Blood Pressure O2 Sat by Pulse 100 99 98 Oximetry O2 Sat by Pulse Oximetry [ Bilateral] 04/20/21 04/20/21 04/20/21 06:02 06:03 06:08 Temperature Pulse Rate 61 71 62 Respiratory Rate Blood Pressure 111/65 113/56 O2 Sat by Pulse 98 97 Oximetry O2 Sat by Pulse Oximetry [ Bilateral] 04/20/21 04/20/21 04/20/21 06:13 06:18 06:23 Temperature Pulse Rate 67 74 65 Respiratory Rate Blood Pressure O2 Sat by Pulse 97 97 97 Oximetry O2 Sat by Pulse Oximetry [ Bilateral] 04/20/21 04/20/21 04/20/21 06:28 06:33 06:38 Temperature Pulse Rate 70 77 66 Respiratory Rate Blood Pressure O2 Sat by Pulse 97 98 98 Oximetry O2 Sat by Pulse Oximetry [ Bilateral] 04/20/21 04/20/21 04/20/21 06:43 06:48 06:53 Temperature Pulse Rate 72 63 63 Respiratory Rate Blood Pressure 114/73 O2 Sat by Pulse 99 98 98 Oximetry O2 Sat by Pulse Oximetry [ Bilateral] 04/20/21 04/20/21 04/20/21 06:58 07:03 07:08 Temperature Pulse Rate 69 74 118 H Respiratory Rate Blood Pressure O2 Sat by Pulse 99 97 87 Oximetry O2 Sat by Pulse Oximetry [ Bilateral] 04/20/21 04/20/21 04/20/21 07:18 07:19 07:23 Temperature Pulse Rate 66 Respiratory Rate Blood Pressure O2 Sat by Pulse 86 100 Oximetry O2 Sat by Pulse 100 Oximetry [ Bilateral] 04/20/21 04/20/21 04/20/21 07:24 07:28 07:29 Temperature Pulse Rate 70 62 61 Respiratory Rate Blood Pressure 125/80 O2 Sat by Pulse 98 100 Oximetry O2 Sat by Pulse Oximetry [ Bilateral] 04/20/21 04/20/21 04/20/21 07:34 07:39 07:44 Temperature Pulse Rate 73 65 64 Respiratory Rate Blood Pressure O2 Sat by Pulse 100 99 100 Oximetry O2 Sat by Pulse Oximetry [ Bilateral] 04/20/21 04/20/21 04/20/21 07:49 07:54 07:59 Temperature Pulse Rate 57 L 62 68 Respiratory Rate Blood Pressure O2 Sat by Pulse 100 100 99 Oximetry O2 Sat by Pulse Oximetry [ Bilateral] 04/20/21 04/20/21 04/20/21 08:03 08:10 08:31 Temperature Pulse Rate 37 L 90 91 H Respiratory Rate Blood Pressure 144/109 O2 Sat by Pulse 84 86 Oximetry O2 Sat by Pulse Oximetry [ Bilateral] 04/20/21 04/20/21 04/20/21 08:37 08:43 08:55 Temperature Pulse Rate Respiratory Rate Blood Pressure O2 Sat by Pulse 83 L 83 L 85 Oximetry O2 Sat by Pulse Oximetry [ Bilateral] 04/20/21 04/20/21 04/20/21 08:56 09:01 09:06 Temperature Pulse Rate 57 L 76 62 Respiratory Rate Blood Pressure O2 Sat by Pulse 86 98 99 Oximetry O2 Sat by Pulse Oximetry [ Bilateral] 04/20/21 04/20/21 04/20/21 09:11 09:16 09:21 Temperature Pulse Rate 73 57 L 60 Respiratory Rate Blood Pressure O2 Sat by Pulse 100 99 99 Oximetry O2 Sat by Pulse Oximetry [ Bilateral] 04/20/21 04/20/21 04/20/21 09:26 09:28 09:31 Temperature Pulse Rate 58 L 57 L 66 Respiratory Rate Blood Pressure 103/66 O2 Sat by Pulse 98 99 Oximetry O2 Sat by Pulse Oximetry [ Bilateral] 04/20/21 04/20/21 04/20/21 09:36 09:41 09:46 Temperature Pulse Rate 56 L 64 59 L Respiratory Rate Blood Pressure O2 Sat by Pulse 99 99 100 Oximetry O2 Sat by Pulse Oximetry [ Bilateral] 04/20/21 04/20/21 04/20/21 09:51 09:56 10:01 Temperature Pulse Rate 65 57 L 62 Respiratory Rate Blood Pressure O2 Sat by Pulse 100 99 99 Oximetry O2 Sat by Pulse Oximetry [ Bilateral] 04/20/21 04/20/21 04/20/21 10:06 10:08 10:11 Temperature Pulse Rate 63 55 L 58 L Respiratory Rate Blood Pressure 108/63 O2 Sat by Pulse 99 99 Oximetry O2 Sat by Pulse Oximetry [ Bilateral] 04/20/21 04/20/21 04/20/21 10:14 10:16 10:21 Temperature 98.8 F Pulse Rate 60 60 69 Respiratory 18 Rate Blood Pressure 113/67 O2 Sat by Pulse 100 97 Oximetry O2 Sat by Pulse Oximetry [ Bilateral] 04/20/21 04/20/21 04/20/21 10:26 10:31 10:36 Temperature Pulse Rate 64 62 60 Respiratory Rate Blood Pressure O2 Sat by Pulse 98 98 99 Oximetry O2 Sat by Pulse Oximetry [ Bilateral] 04/20/21 04/20/21 04/20/21 10:41 10:45 10:46 Temperature Pulse Rate 69 70 67 Respiratory Rate Blood Pressure 120/77 O2 Sat by Pulse 98 100 Oximetry O2 Sat by Pulse Oximetry [ Bilateral] 04/20/21 04/20/21 04/20/21 10:51 10:56 11:01 Temperature Pulse Rate 61 62 56 L Respiratory Rate Blood Pressure O2 Sat by Pulse 100 100 100 Oximetry O2 Sat by Pulse Oximetry [ Bilateral] 04/20/21 04/20/21 04/20/21 11:06 11:11 11:15 Temperature Pulse Rate 56 L 59 L 54 L Respiratory Rate Blood Pressure 129/83 O2 Sat by Pulse 100 100 Oximetry O2 Sat by Pulse Oximetry [ Bilateral] 04/20/21 04/20/21 04/20/21 11:16 11:21 11:24 Temperature Pulse Rate 102 H 79 Respiratory Rate Blood Pressure O2 Sat by Pulse 80 L 81 L 99 Oximetry O2 Sat by Pulse Oximetry [ Bilateral] 04/20/21 04/20/21 04/20/21 11:29 11:34 11:39 Temperature Pulse Rate 63 61 60 Respiratory Rate Blood Pressure O2 Sat by Pulse 97 98 98 Oximetry O2 Sat by Pulse Oximetry [ Bilateral] 04/20/21 04/20/21 04/20/21 11:44 11:49 11:54 Temperature Pulse Rate 60 56 L 65 Respiratory Rate Blood Pressure 118/76 O2 Sat by Pulse 98 98 98 Oximetry O2 Sat by Pulse Oximetry [ Bilateral] 04/20/21 04/20/21 04/20/21 11:59 12:04 12:09 Temperature Pulse Rate 63 66 68 Respiratory Rate Blood Pressure O2 Sat by Pulse 98 98 99 Oximetry O2 Sat by Pulse Oximetry [ Bilateral] 04/20/21 04/20/21 04/20/21 12:14 12:15 12:19 Temperature Pulse Rate 75 93 H 75 Respiratory Rate Blood Pressure 123/69 O2 Sat by Pulse 98 98 Oximetry O2 Sat by Pulse Oximetry [ Bilateral] 04/20/21 04/20/21 04/20/21 12:24 12:29 12:34 Temperature Pulse Rate 67 66 77 Respiratory Rate Blood Pressure O2 Sat by Pulse 98 99 98 Oximetry O2 Sat by Pulse Oximetry [ Bilateral] 04/20/21 04/20/21 04/20/21 12:39 12:44 12:49 Temperature Pulse Rate 61 81 68 Respiratory Rate Blood Pressure 112/78 O2 Sat by Pulse 98 99 98 Oximetry O2 Sat by Pulse Oximetry [ Bilateral] 04/20/21 04/20/21 04/20/21 12:54 12:59 13:04 Temperature Pulse Rate 83 80 73 Respiratory Rate Blood Pressure O2 Sat by Pulse 97 99 99 Oximetry O2 Sat by Pulse Oximetry [ Bilateral] 04/20/21 04/20/21 04/20/21 13:09 13:14 13:15 Temperature Pulse Rate 69 66 69 Respiratory Rate Blood Pressure 113/70 O2 Sat by Pulse 98 98 Oximetry O2 Sat by Pulse Oximetry [ Bilateral] 04/20/21 04/20/21 04/20/21 13:19 13:24 13:29 Temperature Pulse Rate 75 68 63 Respiratory Rate Blood Pressure O2 Sat by Pulse 99 99 99 Oximetry O2 Sat by Pulse Oximetry [ Bilateral] 04/20/21 04/20/21 04/20/21 13:44 13:49 13:54 Temperature Pulse Rate 60 59 L 61 Respiratory Rate Blood Pressure O2 Sat by Pulse 98 98 99 Oximetry O2 Sat by Pulse Oximetry [ Bilateral] 04/20/21 04/20/21 04/20/21 14:00 14:05 14:10 Temperature Pulse Rate 60 62 56 L Respiratory Rate Blood Pressure O2 Sat by Pulse 100 99 99 Oximetry O2 Sat by Pulse Oximetry [ Bilateral] 04/20/21 04/20/21 04/20/21 14:14 14:15 14:20 Temperature Pulse Rate 55 L 61 58 L Respiratory Rate Blood Pressure 110/70 O2 Sat by Pulse 98 98 Oximetry O2 Sat by Pulse Oximetry [ Bilateral] 04/20/21 04/20/21 04/20/21 14:25 14:30 14:35 Temperature Pulse Rate 60 59 L 68 Respiratory Rate Blood Pressure O2 Sat by Pulse 99 98 98 Oximetry O2 Sat by Pulse Oximetry [ Bilateral] 04/20/21 04/20/21 04/20/21 14:40 14:44 14:45 Temperature Pulse Rate 55 L 56 L 62 Respiratory Rate Blood Pressure 119/74 O2 Sat by Pulse 99 99 Oximetry O2 Sat by Pulse Oximetry [ Bilateral] 04/20/21 04/20/21 04/20/21 14:50 14:55 15:00 Temperature Pulse Rate 58 L 55 L 56 L Respiratory Rate Blood Pressure O2 Sat by Pulse 99 99 99 Oximetry O2 Sat by Pulse Oximetry [ Bilateral] 04/20/21 04/20/21 04/20/21 15:05 15:10 15:14 Temperature Pulse Rate 56 L 55 L 52 L Respiratory Rate Blood Pressure 133/78 O2 Sat by Pulse 99 99 Oximetry O2 Sat by Pulse Oximetry [ Bilateral] 04/20/21 04/20/21 04/20/21 15:15 15:20 15:31 Temperature Pulse Rate 56 L 62 54 L Respiratory Rate Blood Pressure O2 Sat by Pulse 100 99 100 Oximetry O2 Sat by Pulse Oximetry [ Bilateral] 04/20/21 04/20/21 04/20/21 15:36 15:41 15:47 Temperature Pulse Rate 65 54 L 72 Respiratory Rate Blood Pressure O2 Sat by Pulse 99 100 100 Oximetry O2 Sat by Pulse Oximetry [ Bilateral] 04/20/21 04/20/21 04/20/21 15:52 15:57 16:02 Temperature Pulse Rate 61 59 L 65 Respiratory 20 Rate Blood Pressure O2 Sat by Pulse 100 100 98 Oximetry O2 Sat by Pulse Oximetry [ Bilateral] 04/20/21 04/20/21 04/20/21 16:07 16:12 16:17 Temperature Pulse Rate 75 82 62 Respiratory Rate Blood Pressure O2 Sat by Pulse 98 98 100 Oximetry O2 Sat by Pulse Oximetry [ Bilateral] 04/20/21 04/20/21 04/20/21 16:22 16:27 16:32 Temperature Pulse Rate 59 L 58 L 81 Respiratory Rate Blood Pressure O2 Sat by Pulse 98 100 99 Oximetry O2 Sat by Pulse Oximetry [ Bilateral] 04/20/21 04/20/21 04/20/21 16:34 16:35 16:36 Temperature Pulse Rate 57 L 61 56 L Respiratory Rate Blood Pressure 144/92 152/83 O2 Sat by Pulse 94 Oximetry O2 Sat by Pulse Oximetry [ Bilateral] 04/20/21 04/20/21 04/20/21 16:37 16:42 16:45 Temperature Pulse Rate 57 L 69 57 L Respiratory Rate Blood Pressure 151/81 O2 Sat by Pulse 98 98 Oximetry O2 Sat by Pulse Oximetry [ Bilateral] 04/20/21 04/20/21 04/20/21 16:47 16:52 16:57 Temperature Pulse Rate 71 69 78 Respiratory Rate Blood Pressure O2 Sat by Pulse 97 97 98 Oximetry O2 Sat by Pulse Oximetry [ Bilateral] 04/20/21 04/20/21 04/20/21 17:02 17:07 17:08 Temperature Pulse Rate 57 L 58 L 61 Respiratory Rate Blood Pressure O2 Sat by Pulse 96 97 94 Oximetry O2 Sat by Pulse Oximetry [ Bilateral] 04/20/21 04/20/21 04/20/21 17:12 17:15 17:17 Temperature Pulse Rate 58 L 62 65 Respiratory Rate Blood Pressure 138/82 O2 Sat by Pulse 100 100 Oximetry O2 Sat by Pulse Oximetry [ Bilateral] 04/20/21 04/20/21 04/20/21 17:22 17:27 17:32 Temperature Pulse Rate 66 88 80 Respiratory Rate Blood Pressure O2 Sat by Pulse 100 98 98 Oximetry O2 Sat by Pulse Oximetry [ Bilateral] 04/20/21 04/20/21 04/20/21 17:34 17:37 17:39 Temperature Pulse Rate 64 64 79 Respiratory Rate Blood Pressure 151/82 151/65 O2 Sat by Pulse 98 Oximetry O2 Sat by Pulse Oximetry [ Bilateral] - Exam Breasts: deferred Cardiovascular: Regular rate Lungs: Normal air movement FHR: auscultation normal, category 1 Uterine Contraction Monitor Mode: External Cervical Dilatation: 7 Cervical Effacement Percentage: 90 station: -2 Uterine Contraction Pattern: Regular Uterine Tone Measurement Phase: Resting Extremities: normal
[2021-04-20] MEDS ORDERED: fentaNYL-BUPIV 2 MCG/ML-0.125% 200 MCG/100 ML BAG EPIDURAL SCH (18:00)
--- NOTE | 2021-04-20 18:26 | Procedure Note ---
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 Machine: MURIEL KELLY Estimated blood loss: 100cc - Vaginal Delivery presentation: vertex Delivery position: OA Intrapartum events: meconium (terminal) Delivery induction: cervidil Delivery augmentation: pitocin Delivery monitor: external FHT, external uterine Route of delivery: Delivery placenta: spontaneous Delivery cord: 3 umbilical vessels Episiotomy: none Delivery laceration: none Anesthesia: epidural Delivery comments: LETA present at delivery counts correct x2 Pitocin bolus infusing post delivery and fundus firm below umbilicus with scant lochia Mother and baby left LDR stable - Infant A at 1 minute: 8 at 5 minutes: 9 Gender: Female (5lbs 10oz)
[2021-04-21] MEDS ORDERED: MAGNESIUM HYDROXIDE (MOM) ORAL LIQD UDC PO PRN (03:15)
[2021-04-21] MEDS ORDERED: ONDANSETRON 4 MG/2 ML INJ IV PRN (03:15)
[2021-04-21] MEDS ORDERED: BENZOCAINE/MENTHOL 20/0.5% TOP SPRAY 56 GM TP PRN (03:15)
[2021-04-21] MEDS ORDERED: ACETAMINOPHEN 325 MG TAB PO PRN (03:15)
[2021-04-21] MEDS ORDERED: HYDROcodone/ACETAMINOPHEN 5-325 MG TAB PO PRN (03:15)
[2021-04-21] MEDS ORDERED: PROMETHAZINE 25 MG TAB PO PRN (03:15)
[2021-04-21] MEDS ORDERED: SENNOSIDES/DOCUSATE SODIUM 8.6/50 MG TAB PO SCH (03:15)
[2021-04-21] MEDS ORDERED: LANOLIN/ZINC/DIMETHICONE (LANSINOH) 7 GM TP PRN (03:15)
[2021-04-21] MEDS ORDERED: WITCH HAZEL/ GLYCERIN PAD TP PRN (03:15)
[2021-04-21] MEDS ORDERED: diphenhydrAMINE 25 MG CAP PO PRN (03:15)
[2021-04-21] MEDS ORDERED: PROMETHAZINE 25 MG RECT SUPP PR PRN (03:15)
[2021-04-21] MEDS: IBUPROFEN 600 MG TAB PO SCH ×4 (04:00→21:00)
[2021-04-21] MEDS: DOCUSATE SODIUM 100 MG CAP PO SCH ×3 (04:45→21:00)
[2021-04-21] MEDS: FERROUS SULFATE 325 MG TAB PO SCH ×3 (04:45→21:00)
[2021-04-21 09:56] LABS: Hemoglobin 10.2 gm/dl (10.1-14.3)
[2021-04-21] MEDS ORDERED: PRENATAL VIT27-FE FUMARATE-FOLIC ACID VIT TAB PO SCH (10:00)
--- NOTE | 2021-04-21 11:53 | Progress Note ---
Assessment and Plan Pt reports desires for discharge home today. FOB supportive @bedside. Pt denies having any complaints this am. Denies GARCIA, vision changes, and RUQ pain. Reports ambulating, voiding and eating without difficulties. assistance given. POC with precautions d/w pt. Questions encouraged and addressed. VSSAF with the exception of BP's 130's-140's/80's-90's since delivery. H&H stable post delivery and I&O reviewed with adequate output. Dr Delgado consulted. Orders placed. - Patient Problems (1) Rubella non-immune status, antepartum Current Visit: Yes Status: Acute Plan to address problem: vaccination ordered (2) (spontaneous vaginal delivery) Current Visit: Yes Status: Acute Subjective - Subjective Date of service: 04/21/21 Principal diagnosis: , PP day 1 Patient reports: appetite normal, voiding normally, pain well controlled, ambulating normally [place]: doing well Objective - Vital Signs Latest vital signs: Vital Signs Temp Pulse Resp BP BP Pulse Ox Pulse Ox 04/21/21 08:22 98.7 F 63 20 126/84 99 04/21/21 08:15 98 04/21/21 04:35 98.3 F 57 L 20 135/81 99 04/20/21 21:45 98.1 F 59 L 18 127/78 100 04/20/21 21:35 63 142/94 100 99 04/20/21 21:15 70 93 04/20/21 21:13 60 100 04/20/21 21:08 57 L 100 04/20/21 21:03 55 L 99 04/20/21 20:58 56 L 100 04/20/21 20:53 57 L 99 04/20/21 20:48 50 L 127/74 99 04/20/21 20:23 58 L 100 04/20/21 20:22 53 L 147/86 04/20/21 20:17 51 L 99 04/20/21 20:12 54 L 100 04/20/21 20:07 57 L 100 04/20/21 20:02 57 L 100 04/20/21 19:57 60 99 04/20/21 19:53 66 146/86 04/20/21 19:52 62 99 04/20/21 19:48 58 L 91 04/20/21 19:47 55 L 100 04/20/21 19:42 56 L 100 04/20/21 19:37 52 L 99 04/20/21 19:32 54 L 100 04/20/21 19:30 98.7 F 04/20/21 19:27 55 L 100 04/20/21 19:24 53 L 125/67 04/20/21 19:22 56 L 100 04/20/21 19:17 59 L 100 04/20/21 19:12 55 L 100 04/20/21 19:07 57 L 99 04/20/21 19:04 86 04/20/21 19:02 53 L 100 04/20/21 18:57 55 L 100 04/20/21 18:52 57 L 99 04/20/21 18:51 66 87 04/20/21 18:47 62 100 04/20/21 18:42 74 100 04/20/21 18:38 70 103/56 04/20/21 18:37 68 100 04/20/21 18:32 84 100 04/20/21 18:27 80 100 04/20/21 18:23 95 H 106/55 04/20/21 18:22 90 99 04/20/21 18:17 93 H 99 04/20/21 18:14 91 H 94 04/20/21 18:12 93 H 100 04/20/21 18:08 88 121/71 04/20/21 18:07 85 100 04/20/21 18:04 77 124/65 04/20/21 18:02 70 100 04/20/21 18:00 79 130/62 04/20/21 17:57 119 H 99 04/20/21 17:56 104 H 90 04/20/21 17:55 93 H 174/108 04/20/21 17:52 99 H 99 04/20/21 17:49 89 136/76 04/20/21 17:47 86 99 04/20/21 17:45 102 H 118/76 04/20/21 17:42 95 H 99 04/20/21 17:39 79 151/65 04/20/21 17:38 20 132/82 04/20/21 17:37 64 98 04/20/21 17:34 64 151/82 04/20/21 17:32 80 98 04/20/21 17:27 88 98 04/20/21 17:22 66 100 04/20/21 17:17 65 100 04/20/21 17:15 62 138/82 04/20/21 17:12 58 L 100 04/20/21 17:08 61 94 04/20/21 17:07 58 L 97 04/20/21 17:02 57 L 96 04/20/21 16:57 78 98 04/20/21 16:52 69 97 04/20/21 16:47 71 97 04/20/21 16:45 57 L 151/81 04/20/21 16:42 69 98 04/20/21 16:37 57 L 98 04/20/21 16:36 56 L 152/83 04/20/21 16:35 61 94 04/20/21 16:34 57 L 144/92 04/20/21 16:32 81 99 04/20/21 16:27 58 L 100 04/20/21 16:22 59 L 98 04/20/21 16:17 62 100 04/20/21 16:12 82 98 04/20/21 16:07 75 98 04/20/21 16:02 65 98 04/20/21 15:57 59 L 20 100 04/20/21 15:52 61 100 04/20/21 15:47 72 100 04/20/21 15:41 54 L 100 04/20/21 15:36 65 99 04/20/21 15:31 54 L 100 04/20/21 15:20 62 99 04/20/21 15:15 56 L 100 04/20/21 15:14 52 L 133/78 04/20/21 15:10 55 L 99 04/20/21 15:05 56 L 99 04/20/21 15:00 56 L 99 04/20/21 14:55 55 L 99 04/20/21 14:50 58 L 99 04/20/21 14:45 62 99 04/20/21 14:44 56 L 119/74 04/20/21 14:40 55 L 99 04/20/21 14:35 68 98 04/20/21 14:30 59 L 98 04/20/21 14:25 60 99 04/20/21 14:20 58 L 98 04/20/21 14:15 61 98 04/20/21 14:14 55 L 110/70 04/20/21 14:10 56 L 99 04/20/21 14:05 62 99 04/20/21 14:00 60 100 04/20/21 13:54 61 99 04/20/21 13:49 59 L 98 04/20/21 13:44 60 98 04/20/21 13:29 63 99 04/20/21 13:24 68 99 04/20/21 13:19 75 99 04/20/21 13:15 69 113/70 04/20/21 13:14 66 98 04/20/21 13:09 69 98 04/20/21 13:04 73 99 04/20/21 12:59 80 99 04/20/21 12:54 83 97 04/20/21 12:49 68 98 04/20/21 12:44 81 112/78 99 04/20/21 12:39 61 98 04/20/21 12:34 77 98 04/20/21 12:29 66 99 04/20/21 12:24 67 98 04/20/21 12:19 75 98 04/20/21 12:15 93 H 123/69 04/20/21 12:14 75 98 04/20/21 12:09 68 99 04/20/21 12:04 66 98 04/20/21 11:59 63 98 04/20/21 11:54 65 98 Intake and Output 04/20/21 04/21/21 04/21/21 23:59 07:59 15:59 Intake Total 115.167 480 Output Total 1200 1100 Balance -1084.833 -620 Intake: IV 15.167 PITOCin/NS 30 UNIT/500ML 15.167 30 units In 500 ml @ 4 mls/hr IV TITR SANJUANA Rx#: [id number] Oral 100 480 Output: Urine 1200 1100 Uretheral (Kelly) 400 Void 800 1100 Other: Total, Intake Amount 100 240 Total, Output Amount 300 700 # Voids Void 1 3 1 Estimated Blood Loss 100 - Exam Breasts: Present: normal, Cardiovascular: Present: Regular rate Lungs: Present: Normal air movement Abdomen: Present: normal appearance, soft. Absent: distention, tenderness, guarding Vulva: both: normal Uterus: Present: normal, firm, fundal height at umbilicus. Absent: bogginess Extremities: Present: normal Comments: scant lochia noted on peripad
--- NOTE | 2021-04-21 14:56 | Post Anesthesia Evaluation ---
- Post Anesthesia Evaluation Patient Participated: Yes Airway Patent: Yes Stable Respiratory Function: Yes Nausea/Vomiting: No Temp > 96.8F: Yes Pain Manageable: Yes Adequeate Hydration: Yes Anesthesia Complications: No Block Receding Appropriately: Yes
[2021-04-21 17:31] LABS: Alanine Aminotransferase 20 units/L (7-56); Albumin 2.9 g/dL (3.9-5); Blood Urea Nitrogen 6 mg/dL (7-17); Calcium 8.9 mg/dL (8.4-10.2); Hemolysis Index 19
[2021-04-21 17:35] LABS: BUN/Creatinine Ratio 9
--- NOTE | 2021-04-21 22:35 | Event Note ---
Date: 04/21/21 Spoke with RN. BP's requested per protocol.
[2021-04-22] MEDS: IBUPROFEN 600 MG TAB PO SCH (03:26)
[2021-04-22] MEDS ORDERED: TETANUS,DIPH,PERTUSS(ACELL) VACCINE 0.5 ML SYRINGE IM ONE (06:00)
[2021-04-22] MEDS ORDERED: MEASLES, MUMPS & RUBELLA 12,500 UNIT/0.5 ML VACCINE SUB-Q ONE (06:00)
--- NOTE | 2021-04-22 07:09 | Discharge Summary ---
Providers - Providers Date of Admission: 04/18/21 08:38 Date of discharge: 04/22/21 Attending physician: DAVION REED 04/21/21 03:15 Consult to Treasury Assistant [CONS] Routine Reason For Exam: assistance with , SNS Primary care physician: DAVION REED Hospitalization Reason for admission: induction of labor, IUP at term Delivery: Episiotomy: none Laceration: none Other procedures: none complications: none Discharge diagnosis: IUP at term delivered [place] baby: female Condition at discharge: Good Disposition: 01 HOME / SELF CARE / HOMELESS - Discharge Diagnoses (1) Rubella non-immune status, antepartum Status: Acute (2) (spontaneous vaginal delivery) Status: Acute Plan - Provider Discharge Summary Activity: routine, no sex for 6 weeks, no heavy lifting 4 weeks, no strenuous exercise Diet: routine Instructions: routine Additional instructions: [] Smoking cessation referral if applicable(refer to patient education folder for contact #) [] Refer to [facility] Booklet Call your doctor immediately for: * Fever > 100.5 * Heavy vaginal bleeding ( >1 pad per hour) * Severe persistent headache * Shortness of breath * Reddened, hot, painful area to leg or breast Congratulations! Please call [phone] and schedule your blood pressure check in 1 week. Please also schedule your appointment in 4 weeks. Thank you! - Follow up plan Follow up: DAVION REED MD [Primary Care Provider] - 7 Days
--- NOTE | 2021-04-22 11:57 | Progress Note ---
Subjective Date of service: 04/22/21 Principal diagnosis: , PP day 1 Interval history: Called to assess patient before d/c due to tingling sensation bilateral legs. No motor weakness, no bowel or bladder dysfunction. Patient states it is slowly resolving. Encouraged patient that it will continue to do so and to follow up if it does not. OK for D/C Objective - Constitutional Vitals: Vital Signs - 12hr 04/21/21 04/22/21 04/22/21 23:59 05:08 07:43 Temperature 98.0 F 98.2 F 98.0 F Pulse Rate 65 57 L 64 Respiratory 20 20 18 Rate Blood Pressure 129/85 135/87 114/85 O2 Sat by Pulse 99 98 96 Oximetry O2 Sat by Pulse Oximetry [ Bilateral] 04/22/21 08:00 Temperature Pulse Rate Respiratory Rate Blood Pressure O2 Sat by Pulse Oximetry O2 Sat by Pulse 98 Oximetry [ Bilateral] - Labs CBC & Chem 7: 04/21/21 16:01 04/21/21 16:01 Labs: Abnormal lab results 04/21/21 Range/Units 16:01 Sodium 136 L (137-145) mmol/L BUN 6 L (7-17) mg/dL Glucose 103 H (65-100) mg/dL Alkaline Phosphatase 155 H (35-129) units/L Total Protein 5.0 L (6.3-8.2) g/dL Albumin 2.9 L (3.9-5) g/dL
[2021-04-22] MEDS ORDERED: FLU VACC QUAD 2021-22(6MOS UP)/PF 60 MCG/0.5 ML SYRINGE IM ONE (12:00)
[2021-04-22 12:54] VITALS: BP 138/88
== END 2021-04-22 11:55 | disposition home or self-care (01) | DRG 775 ==
LOC: LD 08:38 → OB 04-20 22:23
PROVIDERS: ADMIT Obstetrics & Gynecology; ATTEND Obstetrics & Gynecology
PROC: 10E0XZZ Delivery of Products of Conception, External Approach (ICD-10-PCS; principal; 2021-04-20)
PROC: 3E0R3BZ Introduction of Anesthetic Agent into Spinal Canal, Percutaneous Approach (ICD-10-PCS; 2021-04-20)
PROC: 00HU33Z Insertion of Infusion Device into Spinal Canal, Percutaneous Approach (ICD-10-PCS; 2021-04-20)
PROC: 3E0P7VZ Introduction of Hormone into Female Reproductive, Via Natural or Artificial Opening (ICD-10-PCS; 2021-04-20)
PROC: 3E0234Z Introduction of Serum, Toxoid and Vaccine into Muscle, Percutaneous Approach (ICD-10-PCS; 2021-04-22)
DX: O36.5930 Maternal care for other known or suspected poor fetal growth, third trimester, not applicable or unspecified (principal); O77.0 Labor and delivery complicated by meconium in amniotic fluid; Z3A.37 37 weeks gestation of pregnancy; Z37.0 Single live birth; Z20.822 Contact with and (suspected) exposure to COVID-19; Z23 Encounter for immunization
CPT/HCPCS: 36415; 76815; 80053; 85014; 85018; 85027; 85049; 86592; 86850; 86900; 86901; 88307; 90471; 90715; 96360; 96361; 96365; 96366; 96374; G0378; J0595; J2405; J2590; J3010; J7120; U0003